=== PATIENT | female | born 1980 | race Native Hawaiian/Other Pacific Islander ===

== ENCOUNTER 2019-05-21 08:32 | Emergency (ER) | payer OTHER ==
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
[2019-05-21 11:14] VITALS: BP 122/68
== END 2019-05-21 11:13 | disposition home or self-care (01) ==
LOC: ED 08:32
DX: M54.2 Cervicalgia (principal); R51 Headache; V49.49XA Driver injured in collision with other motor vehicles in traffic accident, initial encounter; Y93.89 Activity, other specified; Y92.410 Unspecified street and highway as the place of occurrence of the external cause; Y99.8 Other external cause status
CPT/HCPCS: 70450; 72125